=== PATIENT | male | born 1975 | race Caucasian/White ===

== ENCOUNTER → 2018-09-30 | Outpatient (CLI) | payer BC ==
--- NOTE | 2018-09-30 08:49 | US ---
EXAMINATION TYPE: US abdomen complete DATE OF EXAM: 09/30/2018 COMPARISON: NONE CLINICAL HISTORY: R79.89 Elevated GTT. EXAM MEASUREMENTS: Liver Length: cm Gallbladder Wall: cm CBD: cm Spleen: cm Right Kidney: cm Left Kidney: cm Pancreas: mostly obscured by bowel gas, portions visualized wnl Liver: heterogeneous Gallbladder: dependant sludge Evidence for sonographic Huddletson's sign: no CBD: wnl Spleen: scattered echogenic areas Right Kidney: Inferior pole obscured by bowel gas, no hydronephrosis or masses seen Left Kidney: Superior pole obscured by bowel gas, no hydronephrosis or masses seen Upper IVC: wnl Abd Aorta: bifurcation obscured by overlying bowel gas The liver is homogenous. The intrahepatic portion of the IVC and proximal abdominal aorta are within normal limits. There is no evidence of cholelithiasis. Common bile duct is unremarkable. The visu alized portions of the pancreas are homogenous. The spleen is unremarkable. Kidneys are symmetric a nd free of hydronephrosis. No renal lesions are seen. IMPRESSION: 1. Liver heterogeneity may reflect hepatic steatosis versus diffuse hepatocellular disease. Correlate clinically. 2. Gallbladder sludge. 3. Splenic granulomas.
== END | disposition home or self-care (01) ==
LOC: RADUSWWP 08:03
PROVIDERS: ATTEND Internal Medicine
DX: D73.89 Other diseases of spleen (principal); K82.8 Other specified diseases of gallbladder
CPT/HCPCS: 76700